=== PATIENT | female | born 1965 | race African-American/Black ===

== ENCOUNTER 2020-09-01 11:57 | Emergency (ER) | payer SELFPAY ==
[~2020-09-01] VITALS: Ht 165.1 cm; Wt 78.0 kg
[2020-09-01 12:10] VITALS: BP 176/98
[2020-09-01 13:28] LABS: URINE HCG NEGATIVE (NEG)
[2020-09-01 13:41] LABS: CLARITY,URINE SLIGHTLY CLOUDY (Clear); COLOR,URINE YELLOW (Yellow); GLUCOSE, URINE 500 mg/dl (Neg); KETONES,URINE NEGATIVE (Neg); LEUKOCYTE ESTERASE ,URINE NEGATIVE (Neg); NITRITES, URINE NEGATIVE (Neg); OCCULT BLOOD,URINE NEGATIVE (Neg); PROTEIN,URINE NEGATIVE (Neg); UROBILINOGEN,URINE 0.2 E.U/dL (0.2-1.0)
[2020-09-01 13:51] LABS: UA COLLECTION TYPE VOIDED
[2020-09-01 13:53] LABS: BACTERIA,URINE NONE SEEN /HPF (Neg); MUCUS STRANDS NONE SEEN /LPF (Neg); RBC,URINE NONE SEEN /HPF (0-2); SQUAMOUS EPITHELIAL CELL,UR MODERATE /LPF (FEW); WBC,URINE 0-4 /HPF (0-4)
== END 2020-09-01 14:27 | disposition home or self-care (01) ==
LOC: ER 11:58
DX: R10.84 Generalized abdominal pain (principal)
CPT/HCPCS: 81001; 81025; 99283

== ENCOUNTER 2021-10-01 07:18 | Emergency (ER) | payer OTHER ==
[~2021-10-01] VITALS: Ht 165.1 cm; Wt 78.0 kg
[2021-10-01] MEDS ORDERED: hydrALAZINE 20mg/ml inj. IV ONE (07:40)
[2021-10-01 09:46] VITALS: BP_DIAS 95
[2021-10-01 09:54] VITALS: BP_SYST 175
== END 2021-10-01 09:56 | disposition home or self-care (01) ==
LOC: ER 07:20
DX: I10 Essential (primary) hypertension (principal); R46.0 Very low level of personal hygiene; Z59.00 Homelessness unspecified; Z02.89 Encounter for other administrative examinations
CPT/HCPCS: 99283

== ENCOUNTER → 2023-10-04 | Outpatient (CLI) | payer MEDICAID | END | disposition home or self-care (01) | LOC: RAD 09:10 | PROVIDERS: ATTEND Physician Assistant | DX: R06.02 Shortness of breath (principal) | CPT/HCPCS: 71046 ==

== ENCOUNTER 2023-11-02 08:59 | Outpatient (CLI) | payer MEDICAID ==
[~2023-11-02] VITALS: Ht 165.1 cm; Wt 79.4 kg
[2023-11-02] MEDS: albuterol 2.5 MG/3 ML nebule NEB ONE (09:44)
[2023-11-02 09:45] VITALS: PULSE 65; RESP 16; O2SAT 93
== END 2023-11-02 23:59 | disposition home or self-care (01) ==
LOC: RT 08:59
PROVIDERS: ATTEND Physician Assistant
DX: R06.02 Shortness of breath (principal)
CPT/HCPCS: 71046; 94060; 94729; 94760

== ENCOUNTER 2024-06-19 16:36 | Emergency (ER) | payer MEDICAID ==
[~2024-06-19] VITALS: Ht 165.1 cm; Wt 69.1 kg
[2024-06-19 16:42] VITALS: BP 181/101; PULSE 97; O2SAT 98
[2024-06-19] MEDS ORDERED: LIDO700A32 TOP (18:43)
[2024-06-19] MEDS ORDERED: NAPR-56 PO (18:43)
[2024-06-19 18:56] VITALS: TEMP 97.1
[2024-06-19] MEDS: LIDOcaine 5% patch TP ONE (19:12)
[2024-06-19] MEDS: ketorolac trometh 15mg/ml vial 15 MG/ML ML IM ONE (19:13)
[2024-06-19 19:50] VITALS: RESP 15
[2024-06-19] MEDS: HYDROcodone/acetaminophen 5mg/325mg tablet PO ONE (19:50)
== END 2024-06-19 20:25 | disposition home or self-care (01) ==
LOC: ER 16:36
DX: M54.59 Other low back pain (principal); M79.605 Pain in left leg; Z79.1 Long term (current) use of non-steroidal anti-inflammatories (NSAID); Z79.899 Other long term (current) drug therapy
CPT/HCPCS: 96372; 99283; J1885; A4615